=== PATIENT | male | born 1965 | race Caucasian/White ===

== ENCOUNTER → 2018-01-09 | Outpatient (CLI) | payer OTHER | LOC: M.MRI 11:24 | DX: S73.102A Unspecified sprain of left hip, initial encounter (principal); M16.12 Unilateral primary osteoarthritis, left hip; X58.XXXA Exposure to other specified factors, initial encounter; Y93.89 Activity, other specified; Y92.89 Other specified places as the place of occurrence of the external cause; Y99.8 Other external cause status ==

== ENCOUNTER → 2019-04-30 | Outpatient (CLI) | payer OTHER | END | disposition home or self-care (01) | LOC: M.RAD 04-12 13:00 → M.MRI 12:58 | DX: M16.11 Unilateral primary osteoarthritis, right hip (principal); G89.29 Other chronic pain; M76.02 Gluteal tendinitis, left hip; M76.01 Gluteal tendinitis, right hip; M25.451 Effusion, right hip ==

== ENCOUNTER 2019-07-09 06:08 | Inpatient (IN) | payer OTHER ==
[2019-06-28 14:26] LABS: ABSOLUTE BASOPHILS 0.2 thou/uL (0.0-0.2); ABSOLUTE EOSINOPHILS 0.1 thou/uL (0.0-0.7); ABSOLUTE LYMPHOCYTES 2.7 thou/uL (0.8-5.3); ABSOLUTE MONOCYTES 0.7 thou/uL (0.0-1.2); ABSOLUTE NEUTROPHILS 6.1 thou/uL (1.6-8.1); BASOPHILS 1.5 %; EOSINOPHILS 1.2 %; HEMATOCRIT 49.9 % (42.0-52.0); HEMOGLOBIN 16.9 gm/dL (14.0-18.0); LYMPHOCYTES 27.8 %; MCH 31.3 pg (26.0-34.0); MCHC 33.8 g/dL (28.0-37.0); MCV 92.6 fL (80.0-100.0); MONOCYTES 7.3 %; MPV 9.4 fl. (7.2-11.1); NUCLEATED RBCS 0 /100WBC; POLYS 62.2 %; RBC 5.39 mil/uL (4.50-6.00); RDW-CV 12.9 % (10.5-14.5); WBC 9.9 thou/uL (4.0-11.0)
[2019-06-28 14:49] LABS: APTT 24.6 Seconds (25.0-31.3); PROTIME 10.1 Seconds (9.20-11.50)
[2019-06-28 15:18] LABS: ALBUMIN 3.8 g/dL (3.4-5.0); CALCIUM 9.5 mg/dL (8.5-10.1); CREATININE 0.9 mg/dL (0.6-1.3); POTASSIUM 3.9 mmol/L (3.5-5.1); TOTAL BILIRUBIN 0.5 mg/dL (<0.1-1.0); TOTAL PROTEIN 8.1 g/dL (6.4-8.2)
[2019-06-28 15:23] LABS: PLATELET ESTIMATE ADEQUATE
[2019-06-28 15:24] LABS: CLUMPED PLTS RARE; PLATELET COUNT* 240 thou/uL (150-400)
[2019-06-28 15:28] LABS: ESR (SEDRATE) 15 mm/hr (0-20)
[2019-06-29 03:06] LABS: GLYCOHEMOGLOBIN (HGB A1C) 5.5 % (4.8-5.6)
[~2019-07-09] VITALS: Ht 177.8 cm; Wt 111.1 kg
--- NOTE | ~2019-07-09 | OP ---
[address] [address] OPERATIVE REPORT Name: TEDDY SHARIF Room: [address] IN [facility]#: [id number] Admission: 07/09/19 Attend Phys: Jacquelyn Braxton Discharge: Date of : 67 Report #: [id number] THIS REPORT FOR: //name// CC: Yrn Chiang DICTATED BY: RESIDENT Ho DO DATE OF SERVICE: 07/09/2019 PREOPERATIVE DIAGNOSIS: Advanced degenerative joint disease, right hip. POSTOPERATIVE DIAGNOSIS: Advanced degenerative joint disease, right hip. PROCEDURE: Right total hip arthroplasty. SURGEON: Jorge Martinez DO. AMBULANCE OFFICER: Darren Olsen DO. COMPLICATIONS: None. DRAINS: None. SPECIMEN REMOVED: None. ANTIBIOTICS: Ancef 2 grams IV preoperatively. ORTHOPEDIC IMPLANTS: 1. Biomet total hip arthroplasty system, #1 size 10 femoral stem. 2. A 56-mm acetabular shell with 25 mm acetabular screws x 2. 3. A 40 mm ceramic head with standard neck length. 4. A 40 mm high wall polyethylene liner. CONDITION OF PATIENT: The patient is stable to PACU. INDICATION: The patient is a pleasant 54-year-old male seen in my clinic regarding chronic history of right hip pain. He has unfortunately failed conservative treatment including the anti-inflammatory medications, activity modification, steroid injections. X-rays were consistent with end-stage degenerative joint disease. Due to failed conservative treatment, I discussed potential benefit of right total hip arthroplasty. I discussed procedure, risks, benefits, complications and indications in detail with him. Risks discussed include but not limited to infection, neurovascular injury, continuing worsening pain, hardware failure, fracture, dislocation, leg length discrepancy, [facility] [address] [place] [address] OPERATIVE REPORT Name: TEDDY SHARIF Room: [address] [place] [facility].#: [id number] Admission: 07/09/19 Attend Phys: Jacquelyn Braxton Discharge: Date of : 67 Report #: [id number] need for further surgery, DVT, PE, and/or anesthesia complications. He did express understanding and wished to proceed with surgery. DESCRIPTION OF PROCEDURE: After consent was obtained, the patient was taken to the operative suite and placed in supine position on operating room table. He was given benefit of general anesthesia. All bony prominences were well padded. A well-padded perineal post was placed. Both feet were placed in well-padded traction boots. The right hip was then sterilely prepped and draped in the usual fashion. Preop timeout was obtained to confirm the correct patient, procedure and operative site. Surgery began with standard anterior approach incision to the hip. Sharp dissection was taken down to the level of tensor fascia. A new knife was used. Incision was made in line with the skin incision through the fascia. The interval between the tensor muscle and the sartorius was encountered. Deeper dissection exposed the circumflex vessels. These were isolated, pretreated with Aquamantys followed by electrocautery and ligation. Deeper dissection exposed the anterior capsule. The indirect head of the rectus was reflected off the anterior capsule with a Moore elevator. Retractors were placed. Once the anterior capsule was isolated, this was also pretreated with Aquamantys followed by anterior capsulectomy. He had a normal appearing joint effusion. He did have eburnation of the femoral head and neck with osteophytes throughout the femoral head. Femoral neck cut was then made one fingerbreadth above the lesser trochanter. Femoral head and neck were then removed. The acetabulum was then exposed. This was also quite eburnated. Labrum was excised and sequential reaming was performed up to a size 55. This gave us good fit and fill of the acetabulum and good punctate bleeding throughout. Final reaming and cup implantation was done under C-arm visualization. Final 56 mm shell was then impacted into place. This did have good purchase. Two acetabular screws were placed, both 25 mm, both had good purchase. Once confirmed to be in good position with C-arm, these high wall liner was then locked into place. Attention was then turned to the femur and #5 and #8 retractors were used. The hip was gradually externally rotated, extended and adducted while releases were performed. The femoral hook was used to bring the femur up into the proximal femur. This gave us good exposure. Sequential broaching was then performed progressed up to a size 10. This gave us good fit and fill of the proximal femur with good stability. A trial reduction was then performed with -3 neck length. X-rays were obtained in AP and lateral views, noting good position of all hardware and near equal leg lengths. The hip was again dislocated, trial components were removed. Final size stem was then impacted in place and also this did have good solid fit. Trial reduction was again performed and a 0 neck length was chosen. The final 0 neck length, 40 mm ceramic head was then impacted under a clean trunnion. The hip was then reduced with good reduction maneuver. Hip was taken through range of motion. There was no subluxation or dislocation noted. Final x-rays were taken, AP and lateral views, noting good position of all hardware and equal leg lengths. The hip was then thoroughly [address] [place] [address] OPERATIVE REPORT Name: TEDDY SHARIF Room: [address] IN M.R.#: [id number] Admission: 07/09/19 Attend Phys: Jacquelyn Braxton Discharge: Date of : 67 Report #: [id number] irrigated with sterile saline. Ortho cocktail was injected. Tensor fascia was then reapproximated with a #1 Vicryl in [id number] fashion. Subcutaneous tissues closed with 2-0 Vicryl in interrupted fashion followed by running Monocryl stitch on the skin. This covered with Dermabond, was allowed to dry and sterile dressing. He did tolerate the procedure well without complications. He was taken to recovery room in stable condition. All needle and sponge counts correct x 2 at the end of the procedure. By: [id number] Martinez DO /adelaida
[~2019-07-09 06:08] MED LIST: IBUPROFEN 400400 M2 PO
[2019-07-09 12:06] VITALS: BP 123/84
--- NOTE | 2019-07-09 12:28 | NUR ---
PT ADMITTED TO UNIT WITH RT HIP REPLACEMENT. PT ALERT AND ORIENTED. PT RESTING IN ROOM. LUNGS CLEAR. 3 LITERS O2 WITH CAPNO IN PLACE. PULSES 2+ ALL EXTREMTIIES. YAMILKA HOSE ON BILAT. FOOT PUMPS IN PLACE. PT C/O PAIN, MEDS GIVEN PRIOR TO TRANSFER. PT NOTIFED TO USE CALL LIGHT WHEN NEEDING ASSISTANCE. FALL RISK PRECAUTIONS IN PLACE. HOURLY ROUNDING COMPLETED. WILL CONTINUE TO MONITOR.
[2019-07-09 17:12] VITALS: BP 132/88
--- NOTE | 2019-07-09 17:27 | NUR ---
pt remained alert and oriented. pt resting in room. pain meds given as ordered. fall risk precautions in place. hourly rounding completed. will continue to monitor.
[2019-07-09 20:57] VITALS: BP 151/103
[2019-07-10] VITALS: BP 140/84
[2019-07-10 04:00] VITALS: BP 135/81
[2019-07-10 04:23] LABS: HEMATOCRIT 39.6 % (42.0-52.0); HEMOGLOBIN 13.3 gm/dL (14.0-18.0)
--- NOTE | 2019-07-10 06:25 | NUR ---
PAIN HAD ESCALATED THROUGH NIGHT. BEGAN Q3 OXYCODONE 10 MG AND 5 MG NEEDED FOR PAIN. HIS LAST DOSE 604 RATED PAIN 8/10. HE WAS ABLE TO AMBULATE WITH WALKER AND ASSISTANCE X1 AND USE THE RESTROOM. O2 WAS DISCONTNUED BY RESPIRATORY THERAPIST AND NASAL CANNULA REMOVED. HE WILL CONTINUE TO NEED PAIN MANAGEMENT AND STILL HAS LR @ 80MLS/HR. WILL CONTINUE TO MONITOR
[2019-07-10] MEDS ORDERED: DOK PLUS TABLE1 EACH PO (09:13)
[2019-07-10] MEDS ORDERED: ACETAMINOPHEN325 M1 PO (09:13)
[2019-07-10 10:02] VITALS: BP 119/89
--- NOTE | 2019-07-10 12:19 | NUR ---
CALLED IN PRESCRIPTION FOR ELIAZEB, WRITTEN, TO PT.S PHARMACY[facility] IN [phone]. WILL CALL BACK IN ONE HR.FOR COPAY
--- NOTE | 2019-07-10 14:44 | NUR ---
PT.SLEEPING. HE OPENED EYES BRIEFLY. ASKED HIM IF HE FELT LIKE TALKING TO ME. HE SAID 'THIS IS THE FIRST TIME IN 2 DAYS THAT I HAVE SLEPT. CAN YOU COME BACK.' TOLD HIM I WOULD COME BACK IN AM. HE DOES HAVE A FRONT WHEEL WALKER IN ROOM FROM HOME. CM WILL FOLLOW. POSSIBLE DISCHARGE TOMORROW.
[2019-07-10 15:57] VITALS: BP 151/89
--- NOTE | 2019-07-10 19:29 | NUR ---
ASSUMED CARE OF PATIENT AT APPROX 0730. ALERT AND ORIENTED X4. ASSESSMENT COMPLETED AND CHARTED. VSS ON ROOM AIR. COMPLAINTS OF PAIN BEING MANAGED WITH OXY IR, TYLENOL AND IV TORADOL. NO COMPLAINTS OF NAUSEA OR SOA. PATIENT UP WITH GAIT BELT AND WALKER TO USE THE COMMODE. WORKING WITH THERAPIES AND PROGRESSING TOWARD GOALS. FALL PRECAUTIONS IN PLACE. CALL LIGHT WITHIN REACH. HOURLY ROUNDS COMPLETED. NURSING WILL CONTINUE TO MONITOR.
[2019-07-10 20:57] VITALS: BP 127/97
[2019-07-11 04:49] LABS: ABSOLUTE EOSINOPHILS 0.1 thou/uL (0.0-0.7); ABSOLUTE LYMPHOCYTES 1.2 thou/uL (0.8-5.3); ABSOLUTE MONOCYTES 1.4 thou/uL (0.0-1.2); ABSOLUTE NEUTROPHILS 9.8 thou/uL (1.6-8.1); BASOPHILS 0.2 %; EOSINOPHILS 0.5 %; HEMATOCRIT 36.1 % (42.0-52.0); HEMOGLOBIN 12.2 gm/dL (14.0-18.0); LYMPHOCYTES 9.9 %; MCH 31.6 pg (26.0-34.0); MCHC 33.8 g/dL (28.0-37.0); MCV 93.5 fL (80.0-100.0); MONOCYTES 11.5 %; MPV 7.9 fl. (7.2-11.1); NUCLEATED RBCS 0 /100WBC; PLATELET COUNT* 224 thou/uL (150-400); POLYS 77.9 %; RBC 3.87 mil/uL (4.50-6.00); RDW-CV 13.3 % (10.5-14.5); WBC 12.5 thou/uL (4.0-11.0)
[2019-07-11 04:57] LABS: CALCIUM 9.3 mg/dL (8.5-10.1); CREATININE 1.1 mg/dL (0.6-1.3); POTASSIUM 4.5 mmol/L (3.5-5.1)
--- NOTE | 2019-07-11 05:58 | NUR ---
PATIENT SLEPT WELL THROUGH THE SHIFT. HIS PAIN WAS WELL TOLERATED ON SCHEDULED TORODOL AND TYLENOL. HIS GAIT HAS IMPROVED AND PAIN HAS BEEN UNDER 2/10. HE FEELS READY TO GO HOME. STILL PASSING GAS. WILL CONTINUE TO MONITOR.
[2019-07-11 07:30] VITALS: BP 123/84
[2019-07-11] MEDS ORDERED: ELIQUIS5 MG PO (07:42)
[2019-07-11] MEDS ORDERED: DOK PLUS TABLE1 EACH PO (07:42)
[2019-07-11] MEDS ORDERED: OXYCODONE HCL 55 MG PO (07:42)
[2019-07-11] MEDS ORDERED: TRAMADOL 50 MG50 MG PO (07:42)
--- NOTE | 2019-07-11 12:32 | NUR ---
SPOKE WITH PT. HE HAD SHOWERED WITH OT AND WAS NOW UP IN CHAIR. HE IS GOING HOME AFTER LUNCH. HIS WILL BE COMING TO GET HIM. HE SAID HIS IS WORKING FROM HOME FOR THE NEXT WEEK AND A HALF, SO SHE WILL BE ABLE TO ASSIST HIM NEEDED. HE SAID HIS PAIN IS MUCH BETTER. HE HAS A WALKER, BATH [employer]ENCH AND OTHER DME. HE WORKS FOR A [employer] DISCUSSED WITH HIM THE DR.ORDERED HOME WITH SELF DIRECTED EXERCISES. HE IS AGREEABLE TO THIS. HE REQUESTED PAIN MEDICATION AND BACK TO BED. NOTIFIED YUMIKO,HIS NURSE.
[2019-07-11 12:38] VITALS: BP 123/84
[2019-07-11 13:24] VITALS: BP 123/84
--- NOTE | 2019-07-11 16:11 | NUR ---
ASSUMED CARE OF PATIENT AT APPROX 0730. ALERT AND ORIENTED X4. ASSESSMENT COMPLETED AND CHARTED. VSS ON ROOM AIR. PAIN MANAGED WITH ORAL PAIN MEDICATION. NO COMPLAINTS OF NAUSEA OR SOA. PATIENT UP WITH ASSIST USING WALKER AND GAIT BELT. WORKED WELL WITH THERAPIES AND PROGRESSED TOWARD GOALS. PATIENT DISCHARGED AT 1530 WITH ALL PERSONAL BELONGINGS, PRESCRIPTIONS AND DISCHARGE INFORMATION. REFUSED HOME HEALTH FOR THERAPY.
== END 2019-07-11 15:30 | disposition home or self-care (01) | DRG 470 ==
LOC: M.ORTHSURG 06:08 → M.TBA 06:08 → M.PRE 07:50 → M.ORTHSURG 11:04
PROVIDERS: Family Medicine; Orthopaedic Surgery; ADMIT Internal Medicine
PROC: 0SR904Z Replacement of Right Hip Joint with Ceramic on Polyethylene Synthetic Substitute, Open Approach (ICD-10-PCS; principal; 2019-07-09)
DX: M16.11 Unilateral primary osteoarthritis, right hip (principal); K21.9 Gastro-esophageal reflux disease without esophagitis; G89.29 Other chronic pain; Z79.899 Other long term (current) drug therapy; Z90.49 Acquired absence of other specified parts of digestive tract; Z80.8 Family history of malignant neoplasm of other organs or systems; Z80.3 Family history of malignant neoplasm of breast; E66.9 Obesity, unspecified; Z68.35 Body mass index [BMI] 35.0-35.9, adult; Z87.891 Personal history of nicotine dependence

== ENCOUNTER 2019-09-17 11:51 | Emergency (ER) | payer OTHER ==
[~2019-09-17] VITALS: Ht 177.8 cm; Wt 117.9 kg
[~2019-09-17 11:51] MED LIST changes: +ACETAMINOPHEN325 M1 PO; +DOK PLUS TABLE1 EACH PO; +ELIQUIS5 MG PO; +OXYCODONE HCL 55 MG PO; +TRAMADOL 50 MG50 MG PO
[2019-09-17] MEDS ORDERED: ASA81BEC PO (12:40)
[2019-09-17 12:58] LABS: ABSOLUTE BASOPHILS 0.1 thou/uL (0.0-0.2); ABSOLUTE EOSINOPHILS 0.1 thou/uL (0.0-0.7); ABSOLUTE LYMPHOCYTES 1.8 thou/uL (0.8-5.3); ABSOLUTE NEUTROPHILS 5.6 thou/uL (1.6-8.1); BASOPHILS 0.7 %; EOSINOPHILS 1.4 %; HEMATOCRIT 41.4 % (42.0-52.0); HEMOGLOBIN 14.2 gm/dL (14.0-18.0); LYMPHOCYTES 20.9 %; MCH 30.9 pg (26.0-34.0); MCHC 34.2 g/dL (28.0-37.0); MCV 90.5 fL (80.0-100.0); MONOCYTES 11.9 %; NUCLEATED RBCS 0 /100WBC; PLATELET COUNT* 318 thou/uL (150-400); POLYS 65.1 %; RBC 4.58 mil/uL (4.50-6.00); RDW-CV 12.9 % (10.5-14.5); WBC 8.6 thou/uL (4.0-11.0)
[2019-09-17 13:11] LABS: CALCIUM 9.4 mg/dL (8.5-10.1); CREATININE 0.8 mg/dL (0.6-1.3); POTASSIUM 3.8 mmol/L (3.5-5.1)
[2019-09-17 13:17] LABS: ALBUMIN 3.5 g/dL (3.4-5.0); TOTAL BILIRUBIN 0.2 mg/dL (<0.1-1.0); TOTAL PROTEIN 7.6 g/dL (6.4-8.2)
[2019-09-17 14:21] LABS: INFLUENZA A ANTIGEN Negative (Negative); INFLUENZA B ANTIGEN Negative (Negative)
[2019-09-17] MEDS ORDERED: VENTOLIN HFA 1818 GM INH ×2 (15:08→15:14)
[2019-09-17] MEDS ORDERED: AZITHROMYCIN500 MG PO ×2 (15:08→15:14)
[2019-09-17] MEDS ORDERED: MEDROLDOSEPACK PO (15:08)
[2019-09-17] MEDS ORDERED: TESSALON PERLE100 MG PO (15:16)
[2019-09-17 16:02] VITALS: BP 136/79
--- NOTE | 2019-09-17 18:12 | EKG ---
[place] [address] ELECTROCARDIOGRAM REPORT Name: [facility]EDDY SHARIF [id number] Admission: 09/17/19 Attend Phys: Discharge: 09/17/19 Date of : 67 Report #: [id number] THIS REPORT FOR: //name// [facility] ED Test Date: 2019-09-17 Test Time: 13:48:52 Pat Name: TEDDY SHARIF Department: Room: Gender: M Jewelsmith: INNA : 1965 Requested By: Michelle Jorge Order Number: [id number] MD: Jorge Hanna Measurements Intervals [place] Rate: 92 P: 45 WY: 153 QRS: -23 QRSD: 105 T: 52 QT: 355 QTc: 440 Interpretive Statements Sinus rhythm Borderline left axis deviation ST elev, probable normal early repol pattern No previous ECG available for comparison Electronically Signed On 09-17-2019 18:11:49 CDT by Jorge Hanna [email or web address] <ELECTRONICALLY SIGNED> By: Jorge Hanna MD, [facility] 09/17/19 1811 D: 10/1347 47 Jorge Hanna MD, FACC /EPI
== END 2019-09-17 16:04 | disposition home or self-care (01) ==
LOC: M.ERS 11:51
PROVIDERS: Nurse Practitioner Family
DX: J20.9 Acute bronchitis, unspecified (principal); M79.651 Pain in right thigh; Z90.49 Acquired absence of other specified parts of digestive tract; Z96.641 Presence of right artificial hip joint

== ENCOUNTER → 2020-08-05 | Outpatient (CLI) | payer OTHER ==
[~2020-08-05] MED LIST changes: +APAP W/CODEINE1 TA2 PO; +ASA81BEC PO; +AZITHROMYCIN500 MG PO; +IBUPROFEN 800800 M1 PO; +MEDROLDOSEPACK PO; +TESSALON PERLE100 MG PO; +VENTOLIN HFA 1818 GM INH
[2020-08-05 11:20] LABS: ABSOLUTE BASOPHILS 0.1 thou/uL (0.0-0.2); ABSOLUTE EOSINOPHILS 0.1 thou/uL (0.0-0.7); ABSOLUTE LYMPHOCYTES 1.9 thou/uL (0.8-5.3); ABSOLUTE MONOCYTES 0.8 thou/uL (0.0-1.2); ABSOLUTE NEUTROPHILS 5.3 thou/uL (1.6-8.1); BASOPHILS 0.9 %; EOSINOPHILS 1.2 %; HEMATOCRIT 47.9 % (42.0-52.0); HEMOGLOBIN 16.7 gm/dL (14.0-18.0); LYMPHOCYTES 23.5 %; MCHC 34.8 g/dL (28.0-37.0); MCV 92.1 fL (80.0-100.0); MONOCYTES 9.7 %; MPV 7.8 fl. (7.2-11.1); NUCLEATED RBCS 0 /100WBC; PLATELET COUNT* 322 thou/uL (150-400); POLYS 64.7 %; RDW-CV 12.7 % (10.5-14.5); WBC 8.2 thou/uL (4.0-11.0)
[2020-08-05 11:26] LABS: APTT 28.9 Seconds (25.0-31.3); PROTIME 10.5 Seconds (9.20-11.50)
[2020-08-05 12:00] LABS: CALCIUM 9.3 mg/dL (8.5-10.1); POTASSIUM 4.3 mmol/L (3.5-5.1); TOTAL BILIRUBIN 0.4 mg/dL (<0.1-1.0); TOTAL PROTEIN 7.7 g/dL (6.4-8.2)
[2020-08-05 12:25] LABS: ESR (SEDRATE) 10 mm/hr (0-20)
[2020-08-06 02:30] LABS: GLYCOHEMOGLOBIN (HGB A1C) 5.6 % (4.8-5.6)
== END ==
LOC: M.LAB 06:25
PROVIDERS: ATTEND Orthopaedic Surgery
DX: Z01.812 Encounter for preprocedural laboratory examination (principal); M16.12 Unilateral primary osteoarthritis, left hip; Z20.828 Contact with and (suspected) exposure to other viral communicable diseases

== ENCOUNTER 2020-08-11 06:25 | Observation (INO) | payer OTHER ==
[~2020-08-11] VITALS: Ht 177.8 cm; Wt 117.9 kg
--- NOTE | ~2020-08-11 | OP ---
[address] [address] OPERATIVE REPORT Name: TEDDY SHARIF Room: [address] Dia#: [id number] Admission: 08/11/20 Attend Phys: Jacquelyn Braxton Discharge: Date of : 67 Report #: [id number] THIS REPORT FOR: //name// cc: Yrn Lopez MD, Alan J. MD ~ CC: Yrn Chiang DICTATED BY: RESIDENT Ho DO DATE OF SERVICE: 08/11/2020 PREOPERATIVE DIAGNOSIS: Advanced degenerative joint disease, left hip. POSTOPERATIVE DIAGNOSIS: Advanced degenerative joint disease, left hip. PROCEDURE: Left total hip arthroplasty utilizing Biomet total hip arthroplasty system: 1. Size 11 standard offset Microplasty femoral stem. 2. A 56 mm acetabular shell with 25 mm acetabular screws x 2. 3. A 40 mm ceramic head with -3 neck length. 4. A 40 mm high wall polyethylene liner. SURGEON: Jorge Martinez DO. NARCOTICS AGENT: Jensen Goyal DO. ESTIMATED BLOOD LOSS: 700 mL. COMPLICATIONS: None. DRAINS: None. SPECIMEN REMOVED: None. ANTIBIOTICS: Ancef 3 grams IV preoperatively. ANESTHESIA: General. CONDITION OF PATIENT: Stable to PACU. INDICATIONS: The patient is a pleasant 55-year-old male seen in my clinic regarding chronic history of bilateral hip pain. He underwent previous right total hip arthroplasty and is doing well with that. His left hip pain is interfering with his quality of life and activities of daily living. X-rays were consistent with degenerative joint disease. Due to failed conservative [facility] [address] [place] [address] OPERATIVE REPORT Name: TEDDY SHARIF Room: [address] Shilpa Alvares#: [id number] Admission: 08/11/20 Attend Phys: Jacquelyn Braxton Discharge: Date of : 67 Report #: [id number] treatment, I discussed potential benefit of left total hip arthroplasty. I discussed procedure, risks, benefits, complications and indications in detail with him. Risks discussed include but not limited to infection, neurovascular injury, continued or worsening pain, hardware failure, fracture, leg length discrepancy, dislocation, need for further surgery, DVT, PE, and/or anesthesia complications. He did express understanding and wished to proceed with surgery. DESCRIPTION OF PROCEDURE: After consent was obtained, the patient was taken to the operative suite and placed in supine position on operating room table. He was given benefit of general anesthesia. All bony prominences were well padded. The left hip was then sterilely prepped and draped in the usual fashion. Preoperative timeout was obtained to confirm the correct patient, procedure and operative site. Surgery began with standard anterior hip incision approximately 10 cm in length. Sharp dissection was taken down to the level of tensor fascia. A new knife was used and an incision was made through the fascia in line with the skin incision. The underlying muscle belly was reflected and the interval between the sartorius and the tensor fascia was encountered. Deeper dissection exposed the circumflex vessels. These were pretreated with Aquamantys followed by electrocautery and ligation. The #7, #9 and #6 retractors were placed sequentially. The anterior hip capsule was then exposed. At this time, the capsule was pretreated with Aquamantys followed by capsulectomy. He had a normal appearing joint effusion. He did have severely eburnated bone throughout the femoral head and neck as well as the acetabulum. At this time, the femoral neck cut was then made approximately 1 fingerbreadth above the lesser trochanter. Femoral head and neck were then removed. The acetabulum was then exposed. Calcified labrum was excised using electrocautery. Osteophytes were removed with a rongeur. Once the acetabulum was exposed, sequential reaming performed. This progressed up to a size 55. This gave us good fit and fill of the acetabulum with good punctate bleeding throughout. Final reaming and cup implantation was done under C-arm guidance. At this time, the final 56 acetabular shell was opened and impacted into place using the angled guide as well as C-arm fluoroscopy for appropriate version and inclination. This did have good purchase. Once confirmed to be in good position with good purchase, 2 acetabular screws were placed, both 25 mm, both had good purchase. The hip was then thoroughly irrigated. A 40 mm high wall liner was then impacted into place, confirmed to be locked in place after manhole cover was placed. Attention was then turned to the proximal femur. The hip was gradually externally rotated, extended and adducted while releases were performed exposing the proximal femur. The femoral hook was also used to elevate the proximal femur up into the wound. Once we had good exposure, box osteotome was used followed by rat tail rasp and sequential broaching. Broaching progressed up to a size 11, this gave us good fit and filled proximal femur. Trial reduction was performed with -3 neck length, noting good position of all hardware and near equal leg lengths. At this time, the hip was again dislocated. The trial [address] [address] OPERATIVE REPORT Name: TEDDY SHARIF Room: [address] YumikoArin#: [id number] Admission: 08/11/20 Attend Phys: Jacquelyn Braxton Discharge: Date of : 67 Report #: [id number] components were removed. The final size 11 femoral stem was then impacted into place to appropriate depth. This had good purchase. Again, trial reduction was performed and a final -3 neck length was chosen. The final -3 neck length, 40 mm ceramic head was impacted on a clean trunnion. Hip was then reduced with good reduction maneuver. Hip was taken through range of motion. There was no subluxation or dislocation noted throughout all planes. Final x-rays were taken, noting good position of the hardware and near equal leg lengths and no acute intraoperative complications. At this time, the wound was then thoroughly irrigated with sterile saline. Ortho cocktail was injected. The tensor fascia was reapproximated with a running Quill suture. Subcutaneous tissue was closed with 2-0 Vicryl in inverted interrupted fashion followed by running Monocryl stitch on the skin. This was covered with Dermabond which was allowed to dry and Mepilex silver dressing. He did tolerate the procedure well without complications. He was taken to recovery room in stable condition. All needle and sponge counts correct x 2 at the end of the procedure. By: [id number] Martinez, /nt
[2020-08-11 10:38] VITALS: BP 138/66
--- NOTE | 2020-08-11 15:06 | EKG ---
[place] [address] ELECTROCARDIOGRAM REPORT Name: TEDDY SHARIF Room: [address] M.R.#: [id number] Admission: 08/11/20 Attend Phys: Jorge Martinez DO Discharge: Date of : 67 Date of Service: 08/11/20 1105 Report #: [id number] THIS REPORT FOR: //name// [facility] Test Date: 2020-08-11 Test Time: 11:05:24 Pat Name: TEDDY SHARIF Department: Room: [place] [address] Gender: M Electrolytic De Scaler: : 1965 Requested By: Jorge Martinez Order Number: [id number] Alec MD: Ti Sun Measurements Intervals [place] Rate: 77 P: 32 CT: 158 QRS: -17 QRSD: 104 T: 5 QT: 386 QTc: 437 Interpretive Statements Sinus rhythm Borderline left axis deviation Compared to ECG 09/17/2019 13:48:52 ST (T wave) deviation no longer present Electronically Signed On 08-11-2020 15:06:30 CDT by Ti Sun [email or web address] <ELECTRONICALLY SIGNED> By: Ti Sun MD, [facility] 08/11/20 1506 1105 1105 Ti Sun MD, [facility] /EPI
[2020-08-11 15:57] VITALS: BP 138/88
--- NOTE | 2020-08-11 16:04 | NUR ---
PT ADMITTED POST OP LEFT HIP. PT RESTING IN BED. PAIN MEDS GIVEN ORDERED. PT ORIENTED TO ROOM. FAMILY AT BEDSIDE. FALL RISK PRECAUTIONS IN PLACE. WILL CONTINUE TO MONITOR.
[2020-08-11 20:21] VITALS: BP 130/88
[2020-08-12] VITALS: BP 119/89
[2020-08-12 04:00] VITALS: BP 142/99
[2020-08-12 04:03] LABS: HEMATOCRIT 39.5 % (42.0-52.0); HEMOGLOBIN 13.6 gm/dL (14.0-18.0)
--- NOTE | 2020-08-12 04:16 | NUR ---
PT A&OX4, ON 3L NC, VSS, PT UP TO TOILET WITH ASSIST X1, IV FLUIDS INFUSING ORDERED, PAIN MEDS REQUESTED AND GIVEN ORDERED. HOURLY ROUNDINGS COMPLETE, WILL CONTINUE TO MONITOR.
[2020-08-12 07:10] VITALS: BP 132/79
[2020-08-12] MEDS ORDERED: OXYCODONE HCL 55 MG PO (07:55)
[2020-08-12] MEDS ORDERED: COLACE 100 MG100 MG PO (07:55)
[2020-08-12] MEDS ORDERED: ELIQUIS5 MG PO (07:55)
--- NOTE | 2020-08-12 10:33 | NUR ---
CM COMPLETED THE INITIAL ASSESSMENT TO DISCUSS D/C PLANNING. PT A&OX4. PT SITTING UP IN CHAIR UPON ARRIVAL. PT STATED HE DOES NOT WANT TO USE HH, STATED HE DID NOT USE HH NOR OUTPT THERAPY WHEN HE HAD 1ST HIP SURGERY. PT STATES HE HAS A WALKER. DENIES HX W/SNF. PT LIVES AT HOME W/SPOUSE. PT HAS ONLY 1 ST[address]IR [address]. PT BEDROOM IS ON THE MAIN LEVEL. PT IS USU ACTIVE AND INDEPENDENT W/CARES. GOAL IS TO D/C HOME. NO ANTICIPATED NEEDS FROM CM.
[2020-08-12 11:51] VITALS: BP 120/80
[2020-08-12 15:46] VITALS: BP 117/76
--- NOTE | 2020-08-12 16:29 | NUR ---
PT REMAINED ALERT AND ORIENTED. PT UP TO CHAIR FOR THERAPY AND MEALS. PAIN MEDS GIVEN ORDERED. FALL RISK PRECAUTIONS IN PLACE. HOURLY ROUNDING COMPLETED. WILL CONTINUE TO MONITOR.
[2020-08-12 20:00] VITALS: BP 115/75
--- NOTE | 2020-08-13 04:47 | NUR ---
PT A&O, VSS ON RA. MEDS GIVEN ORDERED. PAIN MANAGED WITH SCHEDULED TORADOL AND TYLENOL. DRESSING TO LT HIP C/D/I. PT UP TO THE BR WITH STANDBY ASSIST. PASSING GAS BUT NO BM YET. ICE PACK IN PLACE. CALL LIGHT WITHIN REACH. WILL CONTINUE TO MONITOR.
[2020-08-13 05:14] LABS: HEMATOCRIT 34.5 % (42.0-52.0); HEMOGLOBIN 11.9 gm/dL (14.0-18.0)
[2020-08-13 07:55] VITALS: BP 127/83
--- NOTE | 2020-08-13 11:38 | NUR ---
PT.TO DISCHARGE TODAY. WILL HAVE NO DISCHARGE NEEDS. DID NOT ORDER HOME HEALTH OR OUTPT.THERAPY. PT.SAID HE KNEW WHAT TO DO AT HOME. HE JUST HAD HIS OTHER HIP DONE LAST MONTH. HE SAID CM DID NOT NEED TO CALL IN ELIQUIS. HE HAS MET HIS COPAY. HE HAS FWW.
[2020-08-13 12:43] VITALS: BP 127/83
[2020-08-13 12:48] VITALS: BP 127/83
[2020-08-13 14:32] VITALS: BP 127/83
[2020-08-13 14:33] VITALS: BP 127/83
--- NOTE | 2020-08-13 16:55 | NUR ---
PATIENT DISCHARGED TO HOME. DISCHARGE PAPERS REVIEWED AND SIGNED. PRESCRIPTIONS TRANSMITTED TO PHARMACY AND INFORMATION SHEETS GIVEN. IV REMOVED. PATIENT PACKED OWN BELONGINGS. PATIENT DENIES ANY FURTHER NEEDS. PATIENT TAKEN BY WHEELCHAIR TO EXIT. LEFT WITH .
[2020-08-13 17:13] VITALS: BP 127/83
== END 2020-08-13 16:55 | disposition home or self-care (01) ==
LOC: M.PRE → M.TBA 10:26 → M.ORTHSURG 10:26 → M.TBA 10:26 → M.PRE 10:30 → M.ORTHSURG 15:25 → M.PRE 16:20 → M.ORTHSURG 08-13 16:55
PROVIDERS: Orthopaedic Surgery; ADMIT Internal Medicine; ATTEND Internal Medicine
DX: M16.12 Unilateral primary osteoarthritis, left hip (principal); K21.9 Gastro-esophageal reflux disease without esophagitis; E66.9 Obesity, unspecified; M16.11 Unilateral primary osteoarthritis, right hip; Z79.899 Other long term (current) drug therapy; Z68.37 Body mass index [BMI] 37.0-37.9, adult

== ENCOUNTER → 2020-08-18 | Outpatient (CLI) | payer OTHER ==
[~2020-08-18] MED LIST changes: +COLACE 100 MG100 MG PO
== END ==
LOC: M.ULTRA 11:30
PROVIDERS: ATTEND Orthopaedic Surgery
DX: M79.89 Other specified soft tissue disorders (principal)